=== PATIENT | female | born 1995 | race African-American/Black ===

== ENCOUNTER 2016-06-04 14:30 | Emergency (ER) | payer BC, OTHER ==
[~2016-06-04] VITALS: Ht 165.1 cm; Wt 81.8 kg
[~2016-06-04 14:30] MED LIST: DULERA1 ARO IH; IMPLANON; NEXPLANON68 MG ID; NORA-BE0.35 MG PO; PERCOCET 325 MG1 TA2 PO; PREDNISONE20 MG PO; PROAIR HFA0.09 MG/AC IH; ZOFRAN 4MG T4 MG/TAB PO
[2016-06-04 14:35] VITALS: BP 130/98; PULSE 91; TEMP 98.9
== END 2016-06-04 15:06 | disposition home or self-care (01) ==
LOC: COL.ER 14:30
DX: J06.9 Acute upper respiratory infection, unspecified (principal)

== ENCOUNTER 2016-09-13 00:39 | Observation (INO) | payer BC, OTHER ==
[2016-09-13] VITALS (13 sets, daily range): BP systolic 110–1119; BP diastolic 58–81; PULSE 62–110; TEMP 97.8–98.8
[~2016-09-13] VITALS: Ht 165.1 cm; Wt 85.0 kg
[2016-09-13 01:12] LABS: BASO # 0.1 (0.0-0.2); BASO % 0.4 % (0.0-2.0); EOS # 0.3 (0.0-0.7); EOS % 2.6 % (0-4.0); GRAN # 5.8 (1.4-6.5); GRAN % 49.7 % (42.2-75.2); HEMATOCRIT 38.7 % (37.0-47.0); HEMOGLOBIN 13.3 g/dl (12.5-16.0); LYMPH # 4.8 (1.2-3.4); LYMPH % 40.9 % (20.0-51.0); MEAN CELL VOLUME 90 fl (80.0-100.0); MEAN CORPUSCULAR HEMOGLOBIN 31 pg (27.0-31.0); MEAN CORPUSCULAR HGB CONC 34 g/dl (33.0-37.0); MEAN PLATELET VOLUME 10.6 fl (7.4-10.4); MONO # 0.7 (0.1-0.6); MONO % 6.1 % (1.7-9.3); PLATELET COUNT 228 K/mm3 (130-400); RED BLOOD COUNT 4.29 M/mm3 (4.10-5.30); REDCELL DISTRIBUTION WIDTH-CV 12.2 % (11.5-14.5); WHITE BLOOD COUNT 11.7 K/mm3 (4.8-10.8)
[2016-09-13 01:23] LABS: ADJUSTED CALCIUM 8.9 mg/dL (8.4-10.2); ALANINE AMINOTRANSFERASE 16 U/L (9-52); ALBUMIN 4.3 gm/dL (3.5-5.0); ALKALINE PHOSPHATASE 62 U/L (50-136); ANION GAP 12 mmol/L (7-16); BILIRUBIN,TOTAL 0.9 mg/dL (0.0-1.0); BLOOD UREA NITROGEN 12 mg/dL (7-17); CALCIUM 9.1 mg/dL (8.4-10.2); CARBON DIOXIDE 23 mmol/L (22-30); CHLORIDE 102 mmol/L (98-107); CREATININE, serum 0.81 mg/dL (0.52-1.25); GLUCOSE 91 mg/dL (74-106); LIPASE 151 U/L (23-300); POTASSIUM 3.8 mmol/L (3.4-5.0); SODIUM 137 mmol/L (137-145)
[2016-09-13 01:25] LABS: C-REACTIVE PROTEIN < 0.5 mg/dL (0.0-0.9)
[2016-09-13 03:36] LABS: PH 7 (5-8); SQUAMOUS EPITHELIAL 0-2 /hpf; URINE APPEARANCE Clear; URINE BACTERIA None Seen /hpf; URINE BILIRUBIN Negative (NEGATIVE); URINE BLOOD Negative (NEGATIVE); URINE COLOR Straw; URINE GLUCOSE Negative (NEGATIVE); URINE KETONE Negative (NEGATIVE); URINE RBC None Seen /hpf; URINE UROBILINOGEN Negative (NEGATIVE); URINE WBC 0-2 /hpf
[2016-09-13 05:01] LABS: CHLAMYDIA/TRACH by PCR Female NOT DETECTED; NEISSERIA GON by PCR Female NOT DETECTED
[2016-09-14 07:00] VITALS: BP 114/74; PULSE 54; TEMP 97.8
[2016-09-14] MEDS ORDERED: PERCOCET 325 MG1 TA2 PO (09:23)
[2016-09-14] MEDS ORDERED: IBU800 M1 PO (09:23)
[2016-09-14 12:00] VITALS: BP 121/57; PULSE 70
== END 2016-09-14 14:15 | disposition home or self-care (01) ==
LOC: COL.ER 00:39 → OB 05:16
PROVIDERS: Emergency Medicine
DX: N83.201 Unspecified ovarian cyst, right side (principal); K66.1 Hemoperitoneum; K65.9 Peritonitis, unspecified; Z97.5 Presence of (intrauterine) contraceptive device
CPT/HCPCS: G0378; J0690; J1100; J1170; J1885; J2270; J2405; J2550; J2704; J3010; J7030; J7120; Q9967

== ENCOUNTER 2016-12-25 07:44 | Emergency (ER) | payer BC ==
[~2016-12-25] VITALS: Ht 165.1 cm; Wt 75.0 kg
[~2016-12-25 07:44] MED LIST changes: +IBU800 M1 PO
[2016-12-25 07:49] VITALS: TEMP 99.1
[2016-12-25 08:46] LABS: BASO % 0.1 % (0.0-2.0); EOS # 0.1 (0.0-0.7); EOS % 1.9 % (0-4.0); GRAN # 4.7 (1.4-6.5); GRAN % 69.9 % (42.2-75.2); HEMATOCRIT 38.2 % (37.0-47.0); HEMOGLOBIN 12.8 g/dl (12.5-16.0); LYMPH # 1.5 (1.2-3.4); LYMPH % 21.4 % (20.0-51.0); MEAN CELL VOLUME 92 fl (80.0-100.0); MEAN CORPUSCULAR HEMOGLOBIN 31 pg (27.0-31.0); MEAN CORPUSCULAR HGB CONC 34 g/dl (33.0-37.0); MEAN PLATELET VOLUME 10.8 fl (7.4-10.4); MONO # 0.5 (0.1-0.6); MONO % 6.6 % (1.7-9.3); PLATELET COUNT 208 K/mm3 (130-400); RED BLOOD COUNT 4.17 M/mm3 (4.10-5.30); REDCELL DISTRIBUTION WIDTH-CV 13.5 % (11.5-14.5); WHITE BLOOD COUNT 6.8 K/mm3 (4.8-10.8)
[2016-12-25 08:53] LABS: ADJUSTED CALCIUM 9.1 mg/dL (8.4-10.2); ALBUMIN 3.7 gm/dL (3.5-5.0); BILIRUBIN,TOTAL 0.6 mg/dL (0.0-1.0); C-REACTIVE PROTEIN 4.5 mg/dL (0.0-0.9); CALCIUM 8.9 mg/dL (8.4-10.2); CREATININE, serum 0.71 mg/dL (0.52-1.25); POTASSIUM 3.7 mmol/L (3.4-5.0); TOTAL PROTEIN 6.5 gm/dL (6.4-8.2)
[2016-12-25] MEDS ORDERED: ZOFRAN ODT4 MG PO (09:46)
[2016-12-25 10:43] VITALS: BP 122/70; PULSE 82
== END 2016-12-25 10:41 | disposition home or self-care (01) ==
LOC: COL.ER 07:44
PROVIDERS: Emergency Medicine
DX: R11.2 Nausea with vomiting, unspecified (principal); R19.7 Diarrhea, unspecified; J45.909 Unspecified asthma, uncomplicated; Z98.890 Other specified postprocedural states
CPT/HCPCS: J2405; J2550; J7030

== ENCOUNTER 2018-03-13 13:23 | Emergency (ER) | payer SELFPAY ==
[~2018-03-13] VITALS: Ht 165.1 cm; Wt 68.2 kg
[~2018-03-13 13:23] MED LIST changes: +ZOFRAN ODT4 MG PO
[2018-03-13 13:30] VITALS: TEMP 97
[2018-03-13 14:32] LABS: BASO % 0.4 % (0.0-2.0); EOS # 0.1 (0.0-0.7); EOS % 0.6 % (0-4.0); GRAN # 5.5 (1.4-6.5); GRAN % 66.4 % (42.2-75.2); HEMATOCRIT 40.8 % (37.0-47.0); HEMOGLOBIN 13.9 g/dl (12.5-16.0); LYMPH # 2.2 (1.2-3.4); LYMPH % 27.2 % (20.0-51.0); MEAN CELL VOLUME 93 fl (80.0-100.0); MEAN CORPUSCULAR HEMOGLOBIN 32 pg (27.0-31.0); MEAN CORPUSCULAR HGB CONC 34 g/dl (33.0-37.0); MEAN PLATELET VOLUME 10.4 fl (7.4-10.4); MONO # 0.4 (0.1-0.6); MONO % 5.2 % (1.7-9.3); PLATELET COUNT 227 K/mm3 (130-400); REDCELL DISTRIBUTION WIDTH-CV 12.3 % (11.5-14.5)
[2018-03-13 14:44] LABS: ALANINE AMINOTRANSFERASE 57 U/L (9-52); ALBUMIN 4.3 gm/dL (3.5-5.0); ALKALINE PHOSPHATASE 57 U/L (50-136); ANION GAP 5 mmol/L (7-16); AST,SGOT 138 U/L (15-37); BLOOD UREA NITROGEN 20 mg/dL (7-17); CALCIUM 9.6 mg/dL (8.4-10.2); CARBON DIOXIDE 27 mmol/L (22-30); CHLORIDE 108 mmol/L (98-107); CREATININE, serum 0.75 mg/dL (0.52-1.25); GLUCOSE 76 mg/dL (74-106); POTASSIUM 3.7 mmol/L (3.4-5.0); SODIUM 139 mmol/L (137-145); TOTAL PROTEIN 7.1 gm/dL (6.4-8.2)
[2018-03-13 14:46] LABS: C-REACTIVE PROTEIN < 0.5 mg/dL (0.0-0.9)
[2018-03-13 16:41] VITALS: BP 122/78; PULSE 66
== END 2018-03-13 16:58 | disposition home or self-care (01) ==
LOC: COL.ER 13:23
PROVIDERS: Physician Assistant
DX: R06.00 Dyspnea, unspecified (principal); G43.909 Migraine, unspecified, not intractable, without status migrainosus; F12.90 Cannabis use, unspecified, uncomplicated; F32.9 Major depressive disorder, single episode, unspecified; J45.909 Unspecified asthma, uncomplicated; Z87.891 Personal history of nicotine dependence
CPT/HCPCS: J1885; J2060

== ENCOUNTER 2021-02-07 17:55 | Emergency (ER) | payer SELFPAY ==
[~2021-02-07] VITALS: Ht 165.1 cm; Wt 79.5 kg
[2021-02-07 17:55] VITALS: TEMP 98.1
[2021-02-07 18:48] VITALS: BP 135/82; PULSE 68
== END 2021-02-07 18:48 | disposition home or self-care (01) ==
LOC: COL.ER 17:55
DX: S09.90XA Unspecified injury of head, initial encounter (principal); S16.1XXA Strain of muscle, fascia and tendon at neck level, initial encounter; J45.909 Unspecified asthma, uncomplicated; Q07.00 Arnold-Chiari syndrome without spina bifida or hydrocephalus; V49.40XA Driver injured in collision with unspecified motor vehicles in traffic accident, initial encounter
CPT/HCPCS: J2550; J3010